=== PATIENT | male | born 1980 | race Caucasian/White ===

== ENCOUNTER 2016-09-15 07:18 | Emergency (ER) | payer BC ==
[2016-09-15 07:29] VITALS: BP 150/83
--- NOTE | 2016-09-15 08:16 | ERNOTE ---
[id number] no limitations - Immun/Allergies/Home Medications Immunizations: IMMUNIZATION HX Immunizations Up to Date Yes History of Influenza Vaccine No Hx Pneumococcal Vaccination No Allergies/Adverse Reactions: Allergies Allergy/AdvReac Type Severity Reaction Status Date / Time No Known Allergies Allergy Verified 09/15/16 07:29 - History of Present Illness Narrative: Patient has had a sore throat for two days, his kids had strep throat two weeks ago. He also has a cough and congestion, works long hours at the [employer]. He has not had a PCP since Dr Forte left over a year ago Date (Duration): 09/13/16 Severity: Present: moderate ENT Location: Present: throat Modifying Factors - Improves: Reports: other - cough drops Modifying Factors - Worsens: Reports: coughing Associated Symptoms - ENT: Reports: cough, sore throat, nasal congestion/ drainage. Denies: fever, poor fluid intake, voice change, drooling, headache Prior Treament: Denies: recently seen Review of Systems - Review of Systems Constitutional: Absent: recent illness, fever ENT: Present: See HPI Respiratory: Present: cough. Absent: shortness of breath Cardiology: Absent: chest pain Gastrointestinal/Abdominal: Absent: nausea, vomiting, abdominal pain Skin: Absent: rash Neurological: Absent: headache - Patient's Past Medical History Patient History - Medical: No pertinent hx Patient History - Cardiac/Respiratory: Hypertension - off meds Patient History - Cancer: No Hx of Cancer Patient History - Surgical Procedures: No surgical history - Family History Mother Family History - Medical: - Social History Living Situations: significant other Does anyone smoke in the home?: No Smoking Status: Former smoker Have you smoked in the past 12 months: No Do you dip or chew tobacco: No Patient requests Smoking Cessation Consult: No Initiate information on Smoking Cessation: No Alcohol Use: occasionally Drug Use: none - Immunizations Immunizations Up to Date: Yes History of Influenza Vaccine: No Physical Exam - Physical Exam General Appearance: Present: wd/wn, alert, no apparent distress, obese Eye Exam: Normal inspection: bilateral, PERRL: bilateral Ears, Nose, Throat: Present: hearing grossly normal, pharyngeal erythema - minimal. Absent: sinus pain/drainage, pharyngeal swelling, tonsillar swelling Neck: Present: normal inspection. Absent: lymphadenopathy (R), lymphadenopathy (L) Respiratory: Present: no respiratory distress, normal breath sounds, no accessory muscle use, lungs clear Cardiovascular/Chest: Present: regular rate, rhythm, no murmur Neurological Exam: Present: alert, oriented, normal mood/affect Skin Exam: Present: normal color, warm/dry ED Progress - Results and Orders Patient's Lab Results:: I have reviewed the patient's lab results. - Vital Signs Patient's Vital Signs:: I have reviewed the patient's vital signs. Vital Signs: Vital Signs 09/15/16 07:23 Temperature 36.5 C Pulse Rate 82 Respiratory 16 Rate Blood Pressure 150/83 O2 Sat by Pulse 98 Oximetry - Progress/Reassessment Chief Complaint: Sore Throat Departure Clinical Impression: URI (upper respiratory infection) Qualifiers: URI type: unspecified viral URI Qualified Code(s): J06.9 - Acute upper respiratory infection, unspecified - Departure Disposition: Home self-care Condition: Good Instructions: Upper Respiratory Infection, Adult, [id number] Additional Instructions: continue over the counter medications for your symptoms call the family medicine clinic to get established with a family doctor
== END 2016-09-15 08:23 | disposition home or self-care (01) ==
LOC: ER 07:18
DX: J06.9 Acute upper respiratory infection, unspecified (principal); B97.89 Other viral agents as the cause of diseases classified elsewhere; Z87.891 Personal history of nicotine dependence

== ENCOUNTER 2016-10-02 06:48 | Emergency (ER) | payer BC ==
[2016-10-02 06:56] VITALS: BP 133/76
--- NOTE | 2016-10-02 07:21 | ERNOTE ---
ENT HPI Presenting Symptoms: other - throat pain Time Seen by Provider: 10/02/16 07:14 Source: patient Exam Limitations: no limitations - Immun/Allergies/Home Medications Immunizations: IMMUNIZATION HX Immunizations Up to Date Yes History of Influenza Vaccine No Hx Pneumococcal Vaccination No Allergies/Adverse Reactions: Allergies Allergy/AdvReac Type Severity Reaction Status Date / Time No Known Allergies Allergy Verified 09/15/16 07:29 Home Medications: HOME MEDICATIONS NK [No Home Medication] 10/02/16 [Last Taken Unknown] - History of Present Illness Severity: Present: mild, moderate ENT Location: Present: throat Prearrival Treatment: Present: over the counter meds Modifying Factors - Improves: Reports: medication Modifying Factors - Worsens: Reports: coughing - and eating Associated Symptoms - ENT: Reports: cough - minimal Review of Systems - Review of Systems Constitutional: Present: recent illness. Absent: fever EYE: Present: no symptoms reported ENT: Present: no symptoms reported Respiratory: Present: no symptoms reported, wheezing Cardiology: Present: claudication Gastrointestinal/Abdominal: Present: no symptoms reported Genitourinary: Present: no symptoms reported Musculoskeletal: Present: no symptoms reported Skin: Present: no symptoms reported Neurological: Present: no symptoms reported Endocrine: Present: no symptoms reported Hematologic/Lymphatic: Present: no symptoms reported - Patient's Past Medical History Patient History - Medical: No pertinent hx Patient History - Cardiac/Respiratory: Hypertension - off meds Patient History - Cancer: No Hx of Cancer Patient History - Surgical Procedures: No surgical history - Family History Mother Family History - Medical: - Social History Living Situations: significant other Does anyone smoke in the home?: No Alcohol Use: occasionally Drug Use: none Physical Exam - Physical Exam General Appearance: Present: wd/wn, alert, no apparent distress Eye Exam: Normal inspection: bilateral Ears, Nose, Throat: Present: pharyngeal erythema - minimal laterally. Absent: nasal congestion Neck: Present: normal inspection, nontender, supple, full range of motion Respiratory: Present: no respiratory distress, no accessory muscle use Extremity Exam: Present: normal inspection, non-tender, no edema, normal range of motion Neurological Exam: Present: alert, oriented, normal mood/affect, no motor/ sensory deficits Skin Exam: Present: normal color, warm/dry Lymphatic Exam: Present: no adenopathy ED Progress - Results and Orders Patient's Lab Results:: I have reviewed the patient's lab results. Results and Orders: Laboratory Tests 10/02/16 06:59 Group A Strep Rapid Negative - Vital Signs Patient's Vital Signs:: I have reviewed the patient's vital signs. Vital Signs: Vital Signs 10/02/16 06:52 Temperature 36.1 C L Pulse Rate 71 Respiratory 18 Rate Blood Pressure 133/76 O2 Sat by Pulse 95 Oximetry - Progress/Reassessment Chief Complaint: Sore Throat Departure Clinical Impression: Pharyngitis Qualifiers: Pharyngitis/tonsillitis etiology: unspecified etiology Qualified Code(s): J02.9 - Acute pharyngitis, unspecified - Departure Disposition: Home self-care Condition: Good Instructions: Pharyngitis, [id number]
== END 2016-10-02 07:45 | disposition home or self-care (01) ==
LOC: ER 06:48
DX: J02.9 Acute pharyngitis, unspecified (principal)

== ENCOUNTER 2016-12-22 12:15 | Emergency (ER) | payer BC ==
[2016-12-22 12:32] VITALS: BP 160/104
--- NOTE | 2016-12-22 12:56 | ERNOTE ---
<Wanda Borja - Last Filed: 12/22/16 16:03> Upper Extremity HPI - Narrative Date of Service: 12/22/16 - General Extremities Pain Location: 2nd finger: left Time Seen by Provider: 12/22/16 12:55 Source: patient, RN notes reviewed Exam Limitations: no limitations - Immun/Allergies/Home Medications Immunizations: IMMUNIZATION HX Immunizations Up to Date Yes History of Influenza Vaccine No Hx Pneumococcal Vaccination No Allergies/Adverse Reactions: Allergies Allergy/AdvReac Type Severity Reaction Status Date / Time No Known Allergies Allergy Verified 12/22/16 12:32 Home Medications: HOME MEDICATIONS NK [No Home Medication] 10/02/16 [Last Taken Unknown] - History of Present Illness Narrative: 36 y/o male with left index finger injury. Fell while doing yard work and struck the finger on a stationary object. He felt like the finger subluxated laterally at the PIP joint. He has not taken anything for pain. He denies the need for pain medication. Occurred: this morning Location of Incident: home Severity: mild Method of Injury: Reports: direct blow Loss of Consciousness: Reports: no loss of consciousness Other Injuries: Reports: none Review of Systems - Review of Systems Constitutional: Present: no symptoms reported EYE: Present: no symptoms reported ENT: Present: no symptoms reported Respiratory: Present: no symptoms reported Cardiology: Present: no symptoms reported Gastrointestinal/Abdominal: Present: no symptoms reported Genitourinary: Present: no symptoms reported Musculoskeletal: Present: joint pain. Absent: back pain, muscle pain, neck pain , joint swelling Skin: Present: lumps. Absent: lesions, change in color Neurological: Absent: headache, dizziness/light-headedness, weakness, numbness, tingling Endocrine: Present: no symptoms reported Hematologic/Lymphatic: Present: no symptoms reported Psych: Present: no symptoms reported - Patient's Past Medical History Patient History - Medical: Anxiety Patient History - Cardiac/Respiratory: Hypertension Patient History - Cancer: No Hx of Cancer Patient History - Surgical Procedures: Orthopedic Patient History - Other: None - Family History Mother Family History - Medical: - Social History Living Situations: significant other Abuse History: No History of abuse Psych History: Hx of Anxiety Does anyone smoke in the home?: No Smoking Status: Never smoker Do you dip or chew tobacco: No Alcohol Use: occasionally Drug Use: none - Immunizations Immunizations Up to Date: Yes Hx Pneumococcal Vaccination: No History of Influenza Vaccine: No Physical Exam - Physical Exam General Appearance: Present: wd/wn, alert, no apparent distress Respiratory: Present: no respiratory distress, no accessory muscle use Cardiovascular/Chest: Present: normal peripheral pulses Peripheral Pulses: N=norm/S=strong/W=weak/B=bound/A=absent: Dorsalis-pedis (R): Strong, Dorsalis-pedis (L): Strong Extremity Exam: Present: normal range of motion, other - left index finger tender to palpation over dorsal aspect of PIP joint, no ecchymosis, no deformity , no edema. Absent: joint swelling, extremity edema Neurological Exam: Present: alert, oriented, normal mood/affect, no motor/ sensory deficits Skin Exam: Present: normal color, warm/dry ED Progress - Vital Signs Patient's Vital Signs:: I have reviewed the patient's vital signs. Vital Signs: Vital Signs 12/22/16 12:25 Temperature 36.7 C Pulse Rate 76 Respiratory 15 Rate Blood Pressure 160/104 O2 Sat by Pulse 96 Oximetry - X-Ray X-Ray #1 X-Ray: finger - Left index Interpretation: Reviewed by me X-ray Comments: No acute osseous abnormality - Progress/Reassessment Chief Complaint: Hand Injury/Pain Progress:: Unchanged Departure Clinical Impression: Finger sprain Qualifiers: Encounter type: initial encounter Finger: index finger Sprain of finger site: interphalangeal joint Laterality: left Qualified Code(s): S63.631A - Sprain of interphalangeal joint of left index finger, initial encounter - Departure Disposition: Home self-care Condition: Good Instructions: Finger Sprain Additional Instructions: Tylenol and/or ibuprofen for pain Ice Follow up with your doctor as needed Referrals: Jya Parker MD [Primary Care Provider] - <Taurus Conte - Last Filed: 12/22/16 17:43> Upper Extremity HPI - Immun/Allergies/Home Medications Immunizations: IMMUNIZATION HX Immunizations Up to Date Yes History of Influenza Vaccine No Hx Pneumococcal Vaccination No - Patient's Past Medical History Patient History - Medical: Anxiety Patient History - Cardiac/Respiratory: Hypertension Patient History - Cancer: No Hx of Cancer Patient History - Surgical Procedures: Other Patient History - Other: None - Family History Mother Family History - Medical: - Social History Living Situations: significant other Abuse History: No History of abuse Psych History: Hx of Anxiety Does anyone smoke in the home?: No Smoking Status: Never smoker Do you dip or chew tobacco: No Alcohol Use: occasionally Drug Use: none - Immunizations Immunizations Up to Date: Yes Hx Pneumococcal Vaccination: No History of Influenza Vaccine: No ED Progress - Vital Signs Vital Signs: Vital Signs 12/22/16 12:25 Temperature 36.7 C Pulse Rate 76 Respiratory 15 Rate Blood Pressure 160/104 O2 Sat by Pulse 96 Oximetry
== END 2016-12-22 13:16 | disposition home or self-care (01) ==
LOC: ER 12:15
DX: S63.631A Sprain of interphalangeal joint of left index finger, initial encounter (principal); W22.8XXA Striking against or struck by other objects, initial encounter; Y93.H2 Activity, gardening and landscaping; Y92.007 Garden or yard of unspecified non-institutional (private) residence as the place of occurrence of the external cause